=== PATIENT | female | born 1970 | race Caucasian/White ===

== ENCOUNTER 2017-07-27 17:07 | Emergency (ER) | payer BC ==
[~2017-07-27] VITALS: Ht 170.2 cm; Wt 112.3 kg
[~2017-07-27 17:07] MED LIST: NAPROSYN500 MG PO; PREDNISONE20 MG PO; TRAMADOL HCL50 MG PO; VALIUM5 MG PO
[2017-07-27 17:27] LABS: APPEARANCE CLEAR ((CLEAR)); BILIRUBIN NEGATIVE; BLOOD NEGATIVE; COLOR STRAW ((YELLOW)); GLUCOSE (STRIP) NEGATIVE; KETONES NEGATIVE; LEUKOCYTES NEGATIVE; NITRITE NEGATIVE; PROTEIN (STRIP) NEGATIVE; SPECIFIC GRAVITY 1.005 (1.000-1.030); UCUL ADDED? NO; UROBILINOGEN 0.2 MG/DL (0.2-1.0)
[2017-07-27 17:32] LABS: HEMATOCRIT 35.2 % (36.0-46.0); HEMOGLOBIN 11.4 G/DL (11.9-15.5); MCH 27.1 PG (29.0-34.0); MCHC 32.4 G/DL (30.0-36.0); MCV 83.8 FL (83-99); PLATELET COUNT 269 K/uL (156-360); RBC DIS.WIDTH-SD 39.7 % (39-53); WHITE BLOOD COUNT 6.7 K/uL (4.1-10.2)
[2017-07-27 17:43] LABS: ALBUMIN 4.2 g/dL (3.2-4.8)
[2017-07-27 17:44] LABS: CHLORIDE 107 mEq/L (99-109); SODIUM 140 mEq/L (136-147)
[2017-07-27 17:46] LABS: GLUCOSE 93 mg/dL (70-99); TOTAL PROTEIN 7.5 g/dL (6.4-8.3)
[2017-07-27 17:48] LABS: TOTAL BILIRUBIN 0.4 mg/dL (0.0-1.0)
[2017-07-27 17:49] LABS: ALKALINE PHOSPHATASE 59 IU/L (3-129)
[2017-07-27 17:50] LABS: CREATININE 0.8 mg/dL (0.6-1.3); GFR ESTIMATE (CALCULATED) > 59 mL/min/
[2017-07-27 17:51] LABS: AST (GOT) 12 IU/L (2-34); UREA NITROGEN (BUN) 6 mg/dL (9-23)
[2017-07-27 17:52] LABS: ALT (GPT) 10 IU/L (3-49)
[2017-07-27 17:59] LABS: QUANTITATIVE HCG < 4.0 MIU/ML
[2017-07-27 18:55] LABS: LIPASE 14 U/L (1.0-51.0)
[2017-07-27] MEDS ORDERED: NORCO 5/3251 TABLET PO (20:42)
[2017-07-27 20:48] VITALS: BP 124/89
== END 2017-07-27 20:51 | disposition home or self-care (01) ==
LOC: EME 17:07
DX: R10.11 Right upper quadrant pain (principal); N28.1 Cyst of kidney, acquired
CPT/HCPCS: 74177; 80053; 81003; 83690; 84702; 85027; 93005; 99281; 99285; J7040

== ENCOUNTER → 2017-08-20 | Outpatient (CLI) | payer BC ==
[~2017-08-20] MED LIST changes: +NORCO 5/3251 TABLET PO
== END | disposition home or self-care (01) ==
LOC: NUC 06:49
DX: R10.11 Right upper quadrant pain (principal)
CPT/HCPCS: 78227; A9537; J2250; J2805

== ENCOUNTER → 2017-08-21 | Outpatient (CLI) | payer BC ==
[~2017-08-21] VITALS: Ht 170.2 cm; Wt 109.3 kg
== END | disposition home or self-care (01) ==
LOC: AMB 11:45
PROC: 0DB98ZX Excision of Duodenum, Via Natural or Artificial Opening Endoscopic, Diagnostic (ICD-10-PCS; principal; 2017-08-21)
DX: R14.0 Abdominal distension (gaseous) (principal); R10.11 Right upper quadrant pain; R10.13 Epigastric pain; Z68.38 Body mass index [BMI] 38.0-38.9, adult
CPT/HCPCS: 88305; J2250; J2805